=== PATIENT | male | born 1955 | race African-American/Black ===

== ENCOUNTER 2024-09-22 16:55 | Emergency (ER) | payer OTHER, MEDICAID ==
[2024-09-22] MEDS ORDERED: Ketorolac Tromethamine 30 MG (1 mL) VIAL ONE (17:50)
== END 2024-09-22 18:04 | disposition home or self-care (01) ==
LOC: CSHERS 16:55
DX: S39.012A Strain of muscle, fascia and tendon of lower back, initial encounter (principal); F17.200 Nicotine dependence, unspecified, uncomplicated
CPT/HCPCS: 96372; 99283; J1885

== ENCOUNTER 2024-10-22 08:07 | Outpatient (CLI) | payer OTHER, MEDICAID | END 2024-10-22 08:08 | disposition home or self-care (01) | LOC: CSHULT 08:07 | PROVIDERS: ATTEND Family Medicine | DX: Z12.2 Encounter for screening for malignant neoplasm of respiratory organs (principal); Z00.01 Encounter for general adult medical examination with abnormal findings; F17.210 Nicotine dependence, cigarettes, uncomplicated | CPT/HCPCS: 71271; 76706 ==